=== PATIENT | female | born 1935 | race African-American/Black ===

== ENCOUNTER 2023-10-15 20:19 | Inpatient (IN) | payer MEDICARE, MEDICAID ==
[~2023-10-15] VITALS: Ht 165.1 cm; Wt 78.2 kg
[2023-10-15 20:21] VITALS: O2SAT 97
[2023-10-15 21:43] LABS: EOSINOPHILS % 5.5 % (0.0-5.0); HEMATOCRIT. 40.5 % (36.0-48.0); HEMOGLOBIN. 13.2 g/dL (12.0-16.0); LYMPHOCYTES % 47.6 % (20.0-50.0); MEAN CORPUSCULAR HEMOGLOBIN 29.1 pg (28.0-32.0); MEAN CORPUSCULAR HGB CONC 32.7 g/dL (31.0-37.0); MEAN PLATELET VOLUME 10.6 fl (7.4-10.4); MONOCYTES % 9.6 % (2.0-8.0); NEUTROPHILS % 36.3 % (40.0-76.0); PLATELET 241 x1000/uL (130-400); RED BLOOD CELL COUNT 4.55 mill/uL (4.2-5.4); RED CELL DISTRIBUTION WIDTH 15.3 % (11.6-14.6)
[2023-10-15 21:48] LABS: INR 0.9; PROTHROMBIN TIME 10.3 sec (9.6-11.0)
[2023-10-15 21:51] LABS: ALANINE AMINOTRANSFERASE 44 IU/L (10-49); ALBUMIN 4.7 g/dL (3.2-4.8); ASPARTATE AMINOTRANSFERASE 27 IU/L (<34); BILIRUBIN TOTAL < 0.2 mg/dL (0.1-1.0); CALCIUM 10.3 mg/dL (8.7-10.4); CARBON DIOXIDE 27 mEq/L (21-32); CHLORIDE 106 mEq/L (98-107); CREATINE KINASE 73 IU/L (34-145); CREATININE 0.9 mg/dL (0.6-1.0); GLUCOSE 218 mg/dL (70-105); POTASSIUM 3.8 mEq/L (3.5-5.1); PROTEIN TOTAL 7.7 g/dL (6.0-8.3); SODIUM 140 mEq/L (136-145); TROPONIN I HIGH SENSITIVITY 12 ng/L (3.0-34); UREA NITROGEN BLOOD 25 mg/dL (9-23)
[2023-10-15 21:58] LABS: ETHANOL BLOOD < 10 mg/dL (<10)
[2023-10-15] MEDS: IOHEXOL-350 100 ML BOTTLE ONE (22:27)
[2023-10-16] MEDS ORDERED: DEXTROSE 50% WATER 50ML SYRINGE IV PRN (01:15)
[2023-10-16 01:40] VITALS: BP 137/78; PULSE 71; RESP 20; TEMP 98.8
[2023-10-16 04:36] VITALS: BP 160/86; PULSE 66; RESP 20; TEMP 97.6
[2023-10-16 08:00] VITALS: BP 148/80; PULSE 60; RESP 20; TEMP 98
[2023-10-16] MEDS: ASPIRIN 81MG TABLET PO SCH (08:51)
[2023-10-16] MEDS: INSULIN LISPRO 100 UNITS/ML SUBCUT SCH (08:51)
[2023-10-16] MEDS: BLOOD SUGAR DIAGNOSTIC STRIP TEST SCH (09:00)
[2023-10-16] MEDS: CLOPIDOGREL 75MG TABLET PO SCH (10:30)
[2023-10-16 11:46] LABS: CLARITY URINE CLEAR (CLEAR); COLOR URINE YELLOW (YELLOW); GLUCOSE URINE NEGATIVE (NEGATIVE); KETONES URINE NEGATIVE (NEGATIVE); LEUKOCYTE ESTERASE URINE NEGATIVE (NEGATIVE); NITRITE URINE NEGATIVE (NEGATIVE); OCCULT BLOOD URINE NEGATIVE (NEGATIVE); PH URINE 5.5 (4.5-8.0); PROTEIN URINE 1+ (NEGATIVE); SPECIFIC GRAVITY URINE 1.051 (1.005-1.030); UROBILINOGEN URINE 0.2 E.U./dL (0.2-1.0)
[2023-10-16 11:57] LABS: BACTERIA URINE FEW; RBC URINE 0-2 /hpf (0-2); SQUAMOUS EPITHELIAL CELL URINE FEW /lpf (RARE/1+); YEAST URINE 2+
[2023-10-16 12:00] VITALS: BP 163/75; PULSE 62; RESP 21; TEMP 98.1
[2023-10-16 12:01] LABS: *AMPHETAMINES SCREEN URINE NEGATIVE (NEGATIVE); *BARBITURATES SCREEN URINE NEGATIVE (NEGATIVE); *BENZODIAZEPINES SCREEN URINE NEGATIVE (NEGATIVE); *COCAINE SCREEN URINE NEGATIVE (NEGATIVE); CANNABINOID URINE SCREEN NEGATIVE (NEGATIVE); ECSTASY MDMA SCREEN URINE NEGATIVE (NEGATIVE); METHADONE URINE SCREEN Neg (NEGATIVE); OPIATES URINE SCREEN NEGATIVE (NEGATIVE); PHENCYCLIDINE URINE SCREEN NEGATIVE (NEGATIVE)
[2023-10-16] MEDS: LISINOPRIL 5MG TABLET PO SCH (13:12)
[2023-10-16] MEDS ORDERED: GLIP5TAB22 PO (14:53)
[2023-10-16] MEDS ORDERED: ISOS10TA8 PO (14:53)
[2023-10-16] MEDS ORDERED: GABA-529 PO (14:53)
[2023-10-16] MEDS ORDERED: LINA5TAB PO (14:53)
[2023-10-16] MEDS ORDERED: AMLO2.5T45 PO (14:53)
[2023-10-16] MEDS ORDERED: ASPI-1497 PO (14:53)
[2023-10-16] MEDS ORDERED: DICL50TA9 PO (14:53)
[2023-10-16] MEDS ORDERED: APIX2.5T PO (14:53)
[2023-10-16 16:00] VITALS: BP 183/93; PULSE 64; RESP 26; TEMP 98
[2023-10-16 18:46] LABS: HEMATOCRIT 40.9 % (36.0-48.0); HEMOGLOBIN 13.3 g/dL (12.0-16.0); MEAN CORPUSCULAR HEMOGLOBIN 29.1 pg (28.0-32.0); MEAN CORPUSCULAR HGB CONC 32.6 g/dL (31.0-37.0); MEAN CORPUSCULAR VOLUME 89.4 fL (81.0-99.0); PLATELET 224 x1000/uL (130-400); RED BLOOD CELL COUNT 4.57 mill/uL (4.2-5.4); RED CELL DISTRIBUTION WIDTH 15.1 % (11.6-14.6); WHITE BLOOD COUNT 8.8 x1000/uL (4.5-11.0)
[2023-10-16 18:59] LABS: ALANINE AMINOTRANSFERASE 37 IU/L (10-49); ASPARTATE AMINOTRANSFERASE 24 IU/L (<34); BILIRUBIN TOTAL 0.2 mg/dL (0.1-1.0); CALCIUM 10.6 mg/dL (8.7-10.4); CARBON DIOXIDE 26 mEq/L (21-32); CHLORIDE 108 mEq/L (98-107); CHOLESTEROL 182 mg/dL (<200); CREATININE 0.6 mg/dL (0.6-1.0); GLUCOSE 149 mg/dL (70-105); HDL CHOLESTEROL 32 mg/dL (>65); LDL CHOLESTEROL 118 mg/dL (5-100); POTASSIUM 3.9 mEq/L (3.5-5.1); PROTEIN TOTAL 8.8 g/dL (6.0-8.3); SODIUM 140 mEq/L (136-145); TRIGLYCERIDE 191 mg/dL (0-150); UREA NITROGEN BLOOD 20 mg/dL (9-23)
[2023-10-16 20:00] VITALS: BP 160/95; PULSE 55; RESP 20; TEMP 97.2
[2023-10-16] MEDS ORDERED: VALS80TA30 PO (20:58)
[2023-10-16] MEDS ORDERED: GLIM2TAB30 PO (20:58)
[2023-10-16] MEDS: ATORVASTATIN CALCIUM 40MG TABLET PO SCH (21:23)
[2023-10-16] MEDS: FLUCONAZOLE 200 MG/100ML BAG 100 ML IV NR (21:39)
[2023-10-16] MEDS: ACETAMINOPHEN 650MG/20.3ML UDC PO PRN (21:44)
[2023-10-17] VITALS: BP 156/73; PULSE 64; RESP 18; TEMP 97.7
[2023-10-17 04:00] VITALS: BP 158/58; PULSE 72; RESP 23; TEMP 97.2
[2023-10-17 08:00] VITALS: BP 140/93; PULSE 60; RESP 18; TEMP 98
[2023-10-17] MEDS: AMLODIPINE 10MG TABLET PO SCH (08:20)
[2023-10-17 12:00] VITALS: BP 145/95; PULSE 60; RESP 19; TEMP 98.2
[2023-10-17 16:00] VITALS: BP 173/86; PULSE 76; RESP 20; TEMP 98.5
[2023-10-17] MEDS: HYDRALAZINE 20MG/ML VIAL IV PRN (17:46)
[2023-10-17 17:57] LABS: CALCIUM 10.3 mg/dL (8.7-10.4); CARBON DIOXIDE 23 mEq/L (21-32); CHLORIDE 107 mEq/L (98-107); CREATININE 0.6 mg/dL (0.6-1.0); GLUCOSE 141 mg/dL (70-105); LDL CHOLESTEROL 117 mg/dL (5-100); POTASSIUM 3.9 mEq/L (3.5-5.1); SODIUM 138 mEq/L (136-145); THYROID STIMULATING HORMONE 1.22 uIU/mL (0.55-4.78); UREA NITROGEN BLOOD 20 mg/dL (9-23)
[2023-10-17 18:24] LABS: VITAMIN B12 SERUM 532 pg/mL (211-911)
[2023-10-17 18:49] LABS: T4 FREE 1.05 ng/dL (0.89-1.76)
[2023-10-17 20:00] VITALS: BP 157/98; PULSE 65; RESP 14; TEMP 97.4
[2023-10-17 21:52] LABS: EOSINOPHILS % 4.6 % (0.0-5.0); HEMATOCRIT. 39.9 % (36.0-48.0); HEMOGLOBIN. 13.2 g/dL (12.0-16.0); LYMPHOCYTES % 34.6 % (20.0-50.0); MEAN CORPUSCULAR HEMOGLOBIN 30.2 pg (28.0-32.0); MEAN CORPUSCULAR HGB CONC 33.1 g/dL (31.0-37.0); MEAN CORPUSCULAR VOLUME 91.1 fL (81.0-99.0); MEAN PLATELET VOLUME 9.7 fl (7.4-10.4); MONOCYTES % 9.1 % (2.0-8.0); NEUTROPHILS % 50.7 % (40.0-76.0); PLATELET 230 x1000/uL (130-400); RED BLOOD CELL COUNT 4.37 mill/uL (4.2-5.4); RED CELL DISTRIBUTION WIDTH 14.8 % (11.6-14.6); WHITE BLOOD COUNT 9.1 x1000/uL (4.5-11.0)
[2023-10-18] VITALS: BP 137/111; PULSE 61; RESP 21; TEMP 97.8
[2023-10-18 04:00] VITALS: BP 123/93; PULSE 56; RESP 20; TEMP 97.4
[2023-10-18 08:00] VITALS: BP 136/110; PULSE 56; RESP 20; TEMP 97
[2023-10-18] MEDS ORDERED: LIP40 MT (09:26)
[2023-10-18] MEDS ORDERED: ASPI-1497 MT (09:26)
[2023-10-18 12:46] VITALS: BP 146/90; PULSE 56; TEMP 98
== END 2023-10-18 16:42 | disposition home or self-care (01) | DRG 71 ==
LOC: ER 20:19 → 3WST 21:50
PROVIDERS: ADMIT Internal Medicine; ATTEND Internal Medicine
DX: G93.40 Encephalopathy, unspecified (principal); B37.49 Other urogenital candidiasis; I49.5 Sick sinus syndrome; I44.1 Atrioventricular block, second degree; I11.9 Hypertensive heart disease without heart failure; E04.9 Nontoxic goiter, unspecified; I25.10 Atherosclerotic heart disease of native coronary artery without angina pectoris; I48.0 Paroxysmal atrial fibrillation; H91.90 Unspecified hearing loss, unspecified ear; R73.9 Hyperglycemia, unspecified; E07.9 Disorder of thyroid, unspecified; I44.0 Atrioventricular block, first degree; Z95.5 Presence of coronary angioplasty implant and graft; Z86.73 Personal history of transient ischemic attack (TIA), and cerebral infarction without residual deficits; Z79.01 Long term (current) use of anticoagulants; Z74.01 Bed confinement status
CPT/HCPCS: 36415; 70496; 70498; 70551; 71045; 76536; 80048; 80053; 80061; 80305; 80320; 81003; 82550; 82607; 82962; 83036; 83721; 83880; 84439; 84443; 84480; 84484; 85025; 85027; 87077; 87186; 93005; 97161; 99291; A6261; J0360; J1450; J1815; Q9967; G0480